=== PATIENT | female | born 2000 | race Caucasian/White ===

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

== ENCOUNTER 2022-11-10 19:03 | Emergency (ER) | payer MEDICAID, OTHER ==
[~2022-11-10] VITALS: Ht 162.6 cm; Wt 50.0 kg
[2022-11-10 19:05] VITALS: BP 111/63
[2022-11-10] MEDS ORDERED: LEVETIRACETAM 500MG PREMIX 100 ML IV ONE (19:30)
[2022-11-10 20:15] LABS: BASOPHILS % 0.4 % (0.0-2.0); EOSINOPHILS % 0.3 % (0.0-5.0); HEMATOCRIT. 37.6 % (36.0-48.0); LYMPHOCYTES % 19.4 % (20.0-50.0); MEAN CORPUSCULAR HEMOGLOBIN 33.3 pg (28.0-32.0); MEAN CORPUSCULAR VOLUME 96.4 fL (81.0-99.0); MEAN PLATELET VOLUME 9.1 fl (7.4-10.4); MONOCYTES % 5.2 % (2.0-8.0); NEUTROPHILS % 74.7 % (40.0-76.0); PLATELET 222 x1000/uL (130-400); RED CELL DISTRIBUTION WIDTH 12.8 % (11.6-14.6)
[2022-11-10 20:24] LABS: CHLORIDE 106 mEq/L (98-107)
[2022-11-10 20:28] LABS: INR 1.1; PROTHROMBIN TIME 11.4 sec (9.6-11.0)
[2022-11-10 20:44] LABS: CREATINE KINASE 241 IU/L (26-192); ETHANOL BLOOD < 10 mg/dL
[2022-11-11] MEDS ORDERED: LEVETIRACETAM 500MG TABLET PO SCH (07:00)
== END 2022-11-11 03:05 | disposition left against medical advice (07) ==
LOC: ER 19:03
DX: R56.9 Unspecified convulsions (principal); R46.2 Strange and inexplicable behavior
CPT/HCPCS: 36415; 80053; 80307; 80320; 80329; 82550; 84443; 84484; 85025; 99284; G0480

== ENCOUNTER 2022-12-07 23:19 | Emergency (ER) | payer MEDICAID ==
[~2022-12-07] VITALS: Ht 157.5 cm; Wt 55.0 kg
[2022-12-08] MEDS ORDERED: LEVETIRACETAM 500MG PREMIX 100 ML IV ONE (00:30)
[2022-12-08] MEDS ORDERED: SODIUM CHLORIDE 0.9% 1,000 ML IV ONE (00:30)
[2022-12-08 01:06] LABS: CLARITY URINE CLOUDY (CLEAR); COLOR URINE YELLOW (YELLOW); KETONES URINE TRACE (NEGATIVE); LEUKOCYTE ESTERASE URINE NEGATIVE (NEGATIVE); NITRITE URINE NEGATIVE (NEGATIVE); OCCULT BLOOD URINE NEGATIVE (NEGATIVE); PROTEIN URINE 2+ (NEGATIVE); SPECIFIC GRAVITY URINE 1.026 (1.005-1.030)
[2022-12-08 01:10] LABS: BASOPHILS % 0.4 % (0.0-2.0); EOSINOPHILS % 0.5 % (0.0-5.0); HEMATOCRIT. 42.7 % (36.0-48.0); HEMOGLOBIN. 14.5 g/dL (12.0-16.0); LYMPHOCYTES % 29.8 % (20.0-50.0); MEAN CORPUSCULAR HEMOGLOBIN 32.9 pg (28.0-32.0); MEAN CORPUSCULAR VOLUME 96.7 fL (81.0-99.0); MEAN PLATELET VOLUME 8.4 fl (7.4-10.4); NEUTROPHILS % 64.3 % (40.0-76.0); PLATELET 314 x1000/uL (130-400); RED BLOOD CELL COUNT 4.41 mill/uL (4.2-5.4); RED CELL DISTRIBUTION WIDTH 12.7 % (11.6-14.6)
[2022-12-08 01:17] LABS: *AMPHETAMINES SCREEN URINE NEGATIVE (NEGATIVE); *BARBITURATES SCREEN URINE NEGATIVE (NEGATIVE); *BENZODIAZEPINES SCREEN URINE NEGATIVE (NEGATIVE); *COCAINE SCREEN URINE NEGATIVE (NEGATIVE); METHADONE URINE SCREEN NEGATIVE (NEGATIVE); OPIATES URINE SCREEN NEGATIVE (NEGATIVE); PHENCYCLIDINE URINE SCREEN NEGATIVE (NEGATIVE)
[2022-12-08 01:19] LABS: CHLORIDE 107 mEq/L (98-107)
[2022-12-08 01:23] LABS: CANNABINOID URINE SCREEN PRESUMTIVE POSITIVE (NEGATIVE)
[2022-12-08 01:26] LABS: HCG SCREEN NEGATIVE
[2022-12-08 01:27] LABS: ETHANOL BLOOD < 10 mg/dL
[2022-12-08] MEDS ORDERED: CEFTRIAXONE 1 G PREMIX 50 ML IV ONE (02:45)
[2022-12-08 07:03] VITALS: BP 103/59
== END 2022-12-08 07:34 | disposition home or self-care (01) ==
LOC: ER 23:42
DX: G40.909 Epilepsy, unspecified, not intractable, without status epilepticus (principal); F32.A Depression, unspecified; F91.8 Other conduct disorders; F12.10 Cannabis abuse, uncomplicated; Z20.822 Contact with and (suspected) exposure to COVID-19
CPT/HCPCS: 36415; 80053; 80305; 80307; 80320; 80329; 81003; 84703; 85025; 87426; 93005; 96365; 96366; 96367; 99285; C9803; J0696; J1953; J7030; G0480

== ENCOUNTER 2023-08-17 14:38 | Emergency (ER) | payer MEDICAID, OTHER ==
[~2023-08-17] VITALS: Ht 162.6 cm; Wt 41.0 kg
[2023-08-17 14:41] VITALS: TEMP 98; O2SAT 99
[2023-08-17] MEDS ORDERED: LORAZEPAM 2MG/ML CPJ IV PRN (15:00)
[2023-08-17] MEDS ORDERED: SODIUM CHLORIDE 0.9% 1,000 ML IV ONE (15:00)
[2023-08-17] MEDS ORDERED: LEVETIRACETAM 1000MG PREMIX 100 ML IV ONE (15:00)
[2023-08-17 16:04] LABS: BASOPHILS % 0.8 % (0.0-2.0); EOSINOPHILS % 0.7 % (0.0-5.0); HEMATOCRIT. 38.5 % (36.0-48.0); HEMOGLOBIN. 13.1 g/dL (12.0-16.0); LYMPHOCYTES % 29.5 % (20.0-50.0); MEAN CORPUSCULAR HEMOGLOBIN 32.2 pg (28.0-32.0); MEAN CORPUSCULAR VOLUME 94.8 fL (81.0-99.0); MEAN PLATELET VOLUME 9.6 fl (7.4-10.4); MONOCYTES % 8.7 % (2.0-8.0); NEUTROPHILS % 60.3 % (40.0-76.0); PLATELET 193 x1000/uL (130-400); RED BLOOD CELL COUNT 4.06 mill/uL (4.2-5.4); RED CELL DISTRIBUTION WIDTH 12.7 % (11.6-14.6); WHITE BLOOD COUNT 3.7 x1000/uL (4.5-11.0)
[2023-08-17 16:05] LABS: HCG SCREEN NEGATIVE
[2023-08-17 17:58] LABS: CHLORIDE 111 mEq/L (98-107); POTASSIUM 4.1 mEq/L (3.5-5.1); SODIUM 143 mEq/L (136-145)
[2023-08-17 18:07] LABS: ALANINE AMINOTRANSFERASE 21 IU/L (13-61); ALBUMIN 3.7 g/dL (3.4-5.0); ASPARTATE AMINOTRANSFERASE 22 IU/L (15-37); BILIRUBIN TOTAL 1.2 mg/dL (0.1-1.0); CALCIUM 9.3 mg/dL (8.5-10.1); CARBON DIOXIDE 25 mEq/L (21-32); CREATININE 0.8 mg/dL (0.6-1.3); ETHANOL BLOOD < 10 mg/dL (<10); GLUCOSE 86 mg/dL (70-105); PROTEIN TOTAL 6.7 g/dL (6.0-8.3); UREA NITROGEN BLOOD 8 mg/dL (7-21)
[2023-08-17] MEDS ORDERED: KEPP500 MT (19:15)
[2023-08-17 19:32] VITALS: BP 110/57; PULSE 66; RESP 16
== END 2023-08-17 20:40 | disposition home or self-care (01) ==
LOC: ER 14:38
DX: G40.909 Epilepsy, unspecified, not intractable, without status epilepticus (principal); F19.90 Other psychoactive substance use, unspecified, uncomplicated
CPT/HCPCS: 80053; 80320; 84703; 85025; 36415; 70450; 96365; 99285; J1953; Z7610 ×2; G0480

== ENCOUNTER 2024-04-27 01:00 | Emergency (ER) | payer MEDICAID ==
[~2024-04-27] VITALS: Ht 167.6 cm; Wt 57.0 kg
[~2024-04-27 01:00] MED LIST: KEPP500 MT
[2024-04-27 01:03] VITALS: O2SAT 97
[2024-04-27] MEDS: SODIUM CHLORIDE 0.9% 1,000 ML IV ONE (01:15)
[2024-04-27 01:35] LABS: BASOPHILS % 0.8 % (0.0-2.0); EOSINOPHILS % 0.5 % (0.0-5.0); HEMATOCRIT. 39.8 % (36.0-48.0); HEMOGLOBIN. 13.7 g/dL (12.0-16.0); LYMPHOCYTES % 33.4 % (20.0-50.0); MEAN CORPUSCULAR HEMOGLOBIN 33.1 pg (28.0-32.0); MEAN CORPUSCULAR HGB CONC 34.3 g/dL (31.0-37.0); MEAN CORPUSCULAR VOLUME 96.6 fL (81.0-99.0); MEAN PLATELET VOLUME 8.9 fl (7.4-10.4); MONOCYTES % 7.8 % (2.0-8.0); NEUTROPHILS % 57.5 % (40.0-76.0); PLATELET 258 x1000/uL (130-400); RED BLOOD CELL COUNT 4.12 mill/uL (4.2-5.4); RED CELL DISTRIBUTION WIDTH 12.6 % (11.6-14.6); WHITE BLOOD COUNT 6.3 x1000/uL (4.5-11.0)
[2024-04-27 01:36] LABS: CHLORIDE 107 mEq/L (98-107); POTASSIUM 3.8 mEq/L (3.5-5.1); SODIUM 139 mEq/L (136-145)
[2024-04-27 01:37] LABS: CARBON DIOXIDE 24 mEq/L (21-32)
[2024-04-27 01:38] LABS: CALCIUM 9.7 mg/dL (8.7-10.4)
[2024-04-27 01:42] LABS: GLUCOSE 98 mg/dL (70-105)
[2024-04-27 01:44] LABS: ACETAMINOPHEN < 2 ug/mL (10-30)
[2024-04-27 01:47] LABS: ETHANOL BLOOD < 10 mg/dL (<10); UREA NITROGEN BLOOD < 5 mg/dL (9-23)
[2024-04-27 01:52] VITALS: BP 125/77; PULSE 98; RESP 16; TEMP 98.2
[2024-04-27 01:52] LABS: HCG SCREEN NEGATIVE
== END 2024-04-27 03:55 | disposition home or self-care (01) ==
LOC: ER 01:25
DX: F41.9 Anxiety disorder, unspecified (principal); F19.90 Other psychoactive substance use, unspecified, uncomplicated
CPT/HCPCS: 80048; 80307; 80329; 80320; 84703; 85025; 36415; 96360; 99283; J7030; G0480

== ENCOUNTER 2025-01-23 14:36 | Emergency (ER) | payer MEDICAID ==
[~2025-01-23] VITALS: Ht 167.6 cm; Wt 64.0 kg
[2025-01-23 14:39] VITALS: O2SAT 99
[2025-01-23] MEDS: LORAZEPAM 2MG/ML INJ IM STA (15:28)
[2025-01-23] MEDS: HALOPERIDOL LACTATE 5MG/ML VIAL IM STA (15:28)
[2025-01-23] MEDS: DIPHENHYDRAMINE 50MG/ML VIAL IM STA (15:28)
[2025-01-23 15:57] LABS: BASOPHILS % 0.2 % (0.0-2.0); DIFFERENTIAL COMMENT 0; EOSINOPHILS % 0.3 % (0.0-5.0); HEMATOCRIT. 39.6 % (36.0-48.0); HEMOGLOBIN. 12.9 g/dL (12.0-16.0); MEAN CORPUSCULAR HEMOGLOBIN 31.9 pg (28.0-32.0); MEAN CORPUSCULAR HGB CONC 32.7 g/dL (31.0-37.0); MEAN CORPUSCULAR VOLUME 97.8 fL (81.0-99.0); MONOCYTES % 9.9 % (2.0-8.0); NEUTROPHILS % 72.6 % (40.0-76.0); PLATELET 260 x1000/uL (130-400); RED BLOOD CELL COUNT 4.05 mill/uL (4.2-5.4); RED CELL DISTRIBUTION WIDTH 13.5 % (11.6-14.6)
[2025-01-23 16:08] LABS: CHLORIDE 107 mEq/L (98-107); POTASSIUM 3.5 mEq/L (3.5-5.1); SODIUM 141 mEq/L (136-145)
[2025-01-23 16:09] LABS: CALCIUM 9.3 mg/dL (8.7-10.4); CARBON DIOXIDE 22 mEq/L (21-32); HCG SCREEN NEGATIVE
[2025-01-23 16:14] LABS: CREATININE 0.7 mg/dL (0.6-1.0); GLUCOSE 97 mg/dL (70-105); UREA NITROGEN BLOOD 6 mg/dL (9-23)
[2025-01-23 16:16] LABS: ACETAMINOPHEN < 2 ug/mL (10-30); ALANINE AMINOTRANSFERASE 20 IU/L (10-49); ALBUMIN 4.3 g/dL (3.2-4.8); ASPARTATE AMINOTRANSFERASE 35 IU/L (<34); BILIRUBIN DIRECT 0.3 mg/dL (<=3.0); BILIRUBIN TOTAL 0.8 mg/dL (0.1-1.0); PROTEIN TOTAL 7.1 g/dL (6.0-8.3)
[2025-01-23 16:23] LABS: ETHANOL BLOOD < 10 mg/dL (<10)
[2025-01-24 14:14] LABS: CLARITY URINE CLOUDY (CLEAR); COLOR URINE ORANGE (YELLOW); GLUCOSE URINE NEGATIVE (NEGATIVE); KETONES URINE 3+ (NEGATIVE); LEUKOCYTE ESTERASE URINE 1+ (NEGATIVE); NITRITE URINE NEGATIVE (NEGATIVE); OCCULT BLOOD URINE 3+ (NEGATIVE); PROTEIN URINE 1+ (NEGATIVE); SPECIFIC GRAVITY URINE 1.026 (1.005-1.030)
[2025-01-24 14:26] LABS: BACTERIA URINE 4+; SQUAMOUS EPITHELIAL CELL URINE 2+ /lpf (RARE/1+); YEAST URINE NONE SEEN
[2025-01-24 14:43] LABS: *AMPHETAMINES SCREEN URINE NEGATIVE (NEGATIVE); *BARBITURATES SCREEN URINE NEGATIVE (NEGATIVE); *BENZODIAZEPINES SCREEN URINE NEGATIVE (NEGATIVE); *COCAINE SCREEN URINE NEGATIVE (NEGATIVE); CANNABINOID URINE SCREEN PRESUMPTIVE POSITIVE (NEGATIVE); ECSTASY MDMA SCREEN URINE NEGATIVE (NEGATIVE); METHADONE URINE SCREEN NEGATIVE (NEGATIVE); OPIATES URINE SCREEN NEGATIVE (NEGATIVE); PHENCYCLIDINE URINE SCREEN NEGATIVE (NEGATIVE)
[2025-01-24] MEDS: LORAZEPAM 2MG/ML INJ IM ONE (17:10)
[2025-01-24] MEDS: HALOPERIDOL LACTATE 5MG/ML VIAL IM ONE (17:10)
[2025-01-24 18:01] VITALS: BP 104/57; PULSE 69; RESP 18; TEMP 36.9; O2SAT 98
[2025-01-24] MEDS ORDERED: NITR-87 MT (18:05)
== END 2025-01-24 18:25 ==
LOC: ER 14:36
DX: F20.9 Schizophrenia, unspecified (principal); F29 Unspecified psychosis not due to a substance or known physiological condition; F41.9 Anxiety disorder, unspecified; Z00.8 Encounter for other general examination; Z79.899 Other long term (current) drug therapy
CPT/HCPCS: 80076; 80048; 80307; 80329; 80320; 84703; 85025; 36415; 96372 ×2; 99291; 80305; 81003; J1200; J1630 ×2; J2060 ×2; Z7610 ×2; G0480